=== PATIENT | male | born 1990 | race Caucasian/White ===

== ENCOUNTER 2017-03-14 22:55 | Emergency (ER) | payer OTHER ==
[~2017-03-14] VITALS: Ht 167.6 cm; Wt 72.6 kg
--- NOTE | 2017-03-14 22:55 | NUR ---
Patient was BIBA and taken to bed 05 via gurney per EMS.
--- NOTE | 2017-03-14 22:55 | NUR ---
26Y M BIB FOR DRUG INGESTION OF MUSHROOMS, [place], AND ALCOHOL OF UNKNOWN ABOUT. HX: UNOBTAINABLE ALLERGIES UNOBTAINABLE Addendum: 03/15/17 at 0058 by MED PT. AAO X1, UNABLE TO AMBULATE AT THIS TIME. EPISODE OF COMBATIVE. RESPIRATIONS EVEN AND UNLABORED. VSS, NO C/O PAIN NOR DISCOMFORT NOTED. BED SIDE RAILS UP, BED AT LOWEST POSITION. ER MADE AWARE OF PT. STATUS.
[2017-03-14 23:09] VITALS: BP 173/110
[2017-03-14] MEDS ORDERED: LORazepam 2 MG/ML VIAL IVP ONE ×2 (23:20→23:55)
[2017-03-14] MEDS ORDERED: NACL 0.9% 2,000 ML IV ONE (23:20)
--- NOTE | 2017-03-14 23:20 | NUR ---
Patient being evaluated by physician DR CAMPBELL at bedside.
[2017-03-14 23:38] LABS: BASOPHILS # (AUTO) 0.4 K/uL (0.00-0.22); BASOPHILS % (AUTO) 4.2 % (0.0-2.0); EOSINOPHILS # (AUTO) 0.2 K/uL (0-0.4); EOSINOPHILS % (AUTO) 2.1 % (0.0-4.0); HEMATOCRIT 46.9 % (36-52); HEMOGLOBIN 15.5 g/dL (12.0-18.0); LYMPHOCYTES # (AUTO) 1.9 K/uL (2.0-11.5); LYMPHOCYTES % (AUTO) 17.6 % (20.5-51.1); MEAN CORPUSCULAR HEMOGLOBIN 30 pg (27-31); MEAN CORPUSCULAR HGB CONC 33 g/dL (33-37); MEAN CORPUSCULAR VOLUME 91 fL (80-94); MONOCYTES # (AUTO) 0.5 K/uL (0.8-1.0); NEUTROPHILS # (AUTO) 7.6 K/uL (1.8-7.7); NEUTROPHILS % (AUTO) 71.1 % (42.2-75.2); PLATELET COUNT (AUTO) 358 K/uL (140-450); RED BLOOD CELL COUNT(AUTO) 5.18 MIL/uL (4.20-6.10); RED CELL DISTRIBUTION WIDTH 12.6 % (11.6-13.7); WHITE BLOOD COUNT (AUTO) 10.6 K/uL (4.8-10.8)
[2017-03-14] MEDS ORDERED: ACETAMINOPHEN EXTRA STRENGTH 500 MG TAB ONE (23:53)
[2017-03-15 00:11] LABS: PARTIAL THROMBOPLASTIN TIME 24.4 secs (22-35.6); PROTHROMBIN TIME 9.6 secs (10.8-13.4)
--- NOTE | 2017-03-15 00:30 | NUR ---
TAKE PT. TO CT BY W/C. PT. FREDDYO X4, AMBULATORY WITH STEADY GAIT. VSS, NO S/SX OF DISTRESS NOTED.
--- NOTE | 2017-03-15 00:50 | NUR ---
PT. BACK FROM CT.
[2017-03-15 00:52] LABS: POTASSIUM 3.6 mmol/L (3.5-5.1)
[2017-03-15 00:53] LABS: CALCIUM 9.3 mg/dL (8.5-10.1); CARBON DIOXIDE 27.6 mmol/L (21-32); CREATININE 1.1 mg/dL (0.6-1.3); TOTAL BILIRUBIN 0.9 mg/dL (0.0-1.0)
[2017-03-15 00:54] LABS: ALBUMIN 4.2 g/dL (3.4-5.0); TOTAL PROTEIN, SERUM 7.5 g/dL (6.4-8.2)
--- NOTE | 2017-03-15 02:04 | NUR ---
IV removed, catheter intact and site benign. Applied folded 4x4 gauze and tape to stop bleeding.
--- NOTE | 2017-03-15 02:06 | NUR ---
Patient discharged with v/s stable. Written and verbal after care instructions given and explained. Patient verbalized understanding. Ambulatory with steady gait. All questions addressed prior to discharge. Advised to follow up with PMD.
[2017-03-15 02:07] VITALS: BP 118/79
[2017-03-15 02:24] LABS: AMPHETAMINE, URINE POSITIVE ng/ml (NEG <=1000); BARBITURATE, URINE NEGATIVE ng/ml (NEG <=200); BENZODIAZEPINE, URINE NEGATIVE ng/mL (NEG <=200)
[2017-03-15 02:25] LABS: CANNABINOID, URINE POSITIVE ng/mL (NEG <=50); COCAINE, URINE NEGATIVE ng/mL (NEG <=300); OPIATE, URINE NEGATIVE ng/mL (NEG <=2000); PHENCYCLIDINE SCREEN,URINE NEGATIVE ng/mL (NEG <=25)
== END 2017-03-15 02:06 | disposition home or self-care (01) ==
LOC: MED 22:55
DX: F19.10 Other psychoactive substance abuse, uncomplicated (principal); F12.10 Cannabis abuse, uncomplicated; F15.10 Other stimulant abuse, uncomplicated; R41.82 Altered mental status, unspecified; F17.200 Nicotine dependence, unspecified, uncomplicated
CPT/HCPCS: 36415; 70450; 80053; 80305; 85025; 85610; 85730; 93005; 96361; 96374; 99285; G0482; J2060; J7030